=== PATIENT | female | born 1990 | race Hispanic/Latino ===

== ENCOUNTER 2022-06-12 12:04 | Emergency (ER) | payer MEDICAID ==
[~2022-06-12] VITALS: Ht 167.6 cm; Wt 82.0 kg
[2022-06-12 12:15] VITALS: BP 133/93
[2022-06-12 12:41] VITALS: BP 117/72
[2022-06-12 12:45] VITALS: BP 130/81
[2022-06-12 13:05] VITALS: BP 130/81
== END 2022-06-12 13:09 | disposition short-term general hospital (02) ==
LOC: ED 12:04
DX: O42.013 Preterm premature rupture of membranes, onset of labor within 24 hours of rupture, third trimester (principal); O24.313 Unspecified pre-existing diabetes mellitus in pregnancy, third trimester; Z3A.36 36 weeks gestation of pregnancy

== ENCOUNTER 2022-07-24 18:00 | Emergency (ER) | payer MEDICAID ==
[~2022-07-24] VITALS: Ht 167.6 cm; Wt 72.5 kg
[2022-07-24 18:17] VITALS: BP 137/77
[2022-07-24 18:30] VITALS: BP 127/74
[2022-07-24 18:45] VITALS: BP 128/77
[2022-07-24 19:00] VITALS: BP 118/87
[2022-07-24 20:17] LABS: BASO% 0.3 % (0-3); EOS% 1.6 % (0-8); HEMATOCRIT 36.3 % (37.0-47.0); IMMATURE GRANULOCYTES 0.1 % (0.0-5.0); LYMPH% 21.5 % (15-41); MEAN CELL VOLUME 84.8 fL CALC (80.0-100.0); MEAN CORPUSCULAR HGB 25.7 pG CALC (26.0-32.0); MEAN CORPUSCULAR HGB CONC 30.3 g/dL CAL (32.0-36.0); MONO% 9.7 % (2-13); NEUT# 5.76 thou/uL (2.00-7.15); NEUT% 66.8 % (42-76); RED BLOOD COUNT 4.28 mill/uL (4.20-5.60); RED CELL DISTRI WIDTH 15.4 % (11.5-15.5)
[2022-07-24 20:25] LABS: ACT PARTIAL THROMBO TIME 26.5 SECONDS (20.0-32.5); PROTHROMBIN TIME 9.6 SECONDS (9.0-12.5)
[2022-07-24 20:28] LABS: ALBUMIN 4.6 g/dL (3.2-5.0); ALKALINE PHOSPHATASE 150 u/l (38-126); ANION GAP 14 (6-22 (CALC)); BILIRUBIN, TOTAL 1.2 mg/dL (0.02-1.3); BUN 8 mg/dL (7-17); BUN/CREATININE RATIO 15 (12-20 (CALC)); CARBON DIOXIDE 26 mmol/l (22-30); CHLORIDE 106 mmol/l (95-108); CPK 53 u/l (30-135); CREATININE 0.5 mg/dL (0.5-1.0); D-DIMER 5.48 mg/L (0.19-0.60); GFR FOR AFR.AMER. > 60 ML/MIN (>=60 (CALC)); GFR OTHER RACES > 60 ML/MIN (>=60 (CALC)); POTASSIUM 4.1 mmol/l (3.5-5.1); SGOT/AST 61 u/l (14-36); SODIUM 141 mmol/l (137-146); TOTAL PROTEIN 7.4 g/dL (6.3-8.2)
[2022-07-24] MEDS ORDERED: ELIQUIS5 MG PO (20:48)
[2022-07-24 20:59] LABS: TSH, 3RD GENERATION 0.67 uIU/mL (0.47 - 4.68)
[2022-07-24 21:14] VITALS: BP 118/87
== END 2022-07-24 21:40 | disposition home or self-care (01) ==
LOC: ED 18:00
PROVIDERS: Family Medicine
DX: I82.412 Acute embolism and thrombosis of left femoral vein (principal); E11.9 Type 2 diabetes mellitus without complications